=== PATIENT | female | born 1990 | race Caucasian/White ===

== ENCOUNTER 2017-11-21 12:28 | Emergency (ER) | payer OTHER ==
--- NOTE | 2017-11-21 14:42 | PD ---
HPI Chief Complaint pelvic pressure, irregular cramping Travel History International Travel<30 Days: No Contact w/Intl Traveler<30Days: No Known Affected Area: No History of Present Illness HPI 26-year-old , IUP at 37.2 care complicated by illness related asthma. The patient presents complaining of pelvic pressure over the past several days. She reports pressure is worse when she walks and improved at rest. She reports that it feels like the baby is going to fall out. She reports that she has had some dampness on her underwear over the past 3 days and mucousy discharge over the past 2 days. She denies any large gush of fluid. She denies any vaginal bleeding. She denies any painful contractions that are regular but reports some occasional cramping and mild contractions. She reports good movement. She has no other obstetrical complaints today. She denies any headache, visual changes, right upper quadrant or epigastric pain today. Weeks Gestation: 37 Para: 0 : 1 History Past Medical History Narrative Medical Illness induced asthma Obstetric History Obstetric History Past Surgical History Surgical History: No Previous Surgery Family History Narrative Family History Diabetes, CAD, NM, HTN Social History Alcohol Use: No Tobacco Use: No Substance Abuse: No Review of Systems Except as stated in HPI: all other systems reviewed are Neg Physical Exam Narrative GENERAL: Well-nourished, well-developed patient. SKIN: Warm and dry. HEAD: Normocephalic and atraumatic. EYES: No scleral icterus. No injection or drainage. ENT: No nasal drainage noted. Mucous membranes pink. Airway patent. NECK: Supple, trachea midline. No JVD. CARDIOVASCULAR: Regular rate and rhythm without murmurs, gallops, or rubs. RESPIRATORY: Breath sounds equal bilaterally. No accessory muscle use. BREASTS: Deferred ABDOMEN/GI: Abdomen soft, non-tender, bowel sounds present, no rebound, no guarding Gravid GENITOURINARY: External Genitalia: intact and normal in appearance. Normal BUS. No cervical or vaginal masses noted. Examination are negative. No evidence of gross R OM. Grossly normal rugated. Physiologic discharge noted. SVE 1/thick/ high/posterior internal os by RN. FHT's: heart tones are in the 140s with moderate long-term variability, good accelerations, no decelerations noted. This is a reactive NST and category 1 heart rate tracing EXTREMITIES: No cyanosis or edema. BACK: Nontender without obvious deformity. NEUROLOGICAL/musculoskeletal: Awake and alert. Motor and sensory grossly within normal limits. Grossly normal muscle strength in all muscle groups. Normal speech. Grossly normal range of motion, gait. Psychiatric: Grossly normal memory and affect MDM Plan Assessment/plan: 1. IUP at 37.2 2. Pelvic pressure: Discussed that pelvic pressure is common at this gestational age. Discussed that at this gestational age active labor is required to result in delivery. 3. Contractions: Patient is experiencing irregular contractions at term, no evidence of active labor at this time. Patient is counseled on signs and symptoms of active labor. 4. well-being: There is good evidence of well-being with reactive NST and category 1 heart rate tracing. kick counts daily. 5. Leaking of fluid: No evidence of gross rupture of membranes, and be sure negative, PROM/SROM precautions are given. 6. Follow-up with primary OB in 2-3 days as scheduled or sooner if needed Diagnosis Diagnosis: Primary Impression: 37 weeks gestation of Additional Impression: False labor before 37 completed weeks of gestation in third trimester Disposition: 01 DISCHARGE HOME Condition: Good Patient Instructions: General Instructions, at 35 to 38 Weeks (ED) Departure Forms: Tests/Procedures Thao Weaver MD Nov 21, 2017 14:42
== END 2017-11-21 14:00 | disposition home or self-care (01) ==
LOC: HOBED 12:28
DX: O47.1 False labor at or after 37 completed weeks of gestation (principal); O99.513 Diseases of the respiratory system complicating pregnancy, third trimester; J45.909 Unspecified asthma, uncomplicated; Z3A.37 37 weeks gestation of pregnancy
CPT/HCPCS: 59025; 84112

== ENCOUNTER 2017-12-04 18:01 | Inpatient (IN) | payer OTHER ==
[~2017-12-04] VITALS: Ht 165.1 cm; Wt 86.0 kg
[2017-12-04 18:38] VITALS: BP 148/96; PULSE 121
[2017-12-04 18:45] VITALS: RESP 18
[2017-12-04 19:36] LABS: AUTOMATED NEUTROPHIL # 7.2 TH/MM3 (1.8-7.7); BASOPHIL % 0.2 % (0.0-2.0); EOSINOPHIL # 0.1 TH/MM3 (0-0.4); EOSINOPHIL % 0.6 % (0.0-4.0); HEMATOCRIT 36.6 % (35.0-46.0); HEMOGLOBIN 12.7 GM/DL (11.6-15.3); LYMPH % 21.8 % (9.0-44.0); LYMPHOCYTE # 2.3 TH/MM3 (1.0-4.8); MEAN CELL VOLUME 90.3 FL (80.0-100.0); MEAN CORPUSCULAR HEMOGLOBIN 31.3 PG (27.0-34.0); MEAN CORPUSCULAR HGB CONC 34.6 % (32.0-36.0); MEAN PLATELET VOLUME 9.5 FL (7.0-11.0); MONO % 7.5 % (0.0-8.0); MONOCYTE # 0.8 TH/MM3 (0-0.9); NEUT % 69.9 % (16.0-70.0); PLATELET COUNT 185 TH/MM3 (150-450); RED BLOOD COUNT 4.05 MIL/MM3 (4.00-5.30); RED CELL DISTRIBUTION WIDTH 13.5 % (11.6-17.2); WHITE BLOOD COUNT 10.3 TH/MM3 (4.0-11.0)
[2017-12-04 19:40] VITALS: RESP 18; TEMP 98.8
[2017-12-04 19:41] VITALS: BP 134/85; PULSE 107
[2017-12-04 20:02] LABS: BACTERIA, URINE RARE /hpf; BILIRUBIN, URINE NEG (NEG); BLOOD, URINE NEG (NEG); GLUCOSE,URINE NEG (NEG); KETONE, URINE NEG (NEG); NITRITE,URINE NEG (NEG); SQUAMOUS EPITHELIAL CELL URINE 4 /hpf (0-5); URINE LEUKOCYTE ESTERASE MOD (NEG)
[2017-12-04 20:06] LABS: URINE COLOR STRAW (YELLW/STRAW)
[2017-12-04] MEDS ORDERED: DINOPROSTONE 10 MG INSERT-LEAVE FOR 12 HOURS VAGINAL ONE (20:15)
[2017-12-04] MEDS ORDERED: CITRIC ACID-SODIUM CITRATE LIQ 30 ML UDC PO SCH (20:15)
[2017-12-04] MEDS ORDERED: SODIUM CHLORIDE 0.9% FLUSH 10 ML FLUSH IV FLUSH PRN ×2 (20:15)
[2017-12-04] MEDS ORDERED: LIDOCAINE HCL 1% 50 ML VIAL INFIL PRN (20:15)
[2017-12-04] MEDS ORDERED: OXYTOCIN 30 UNITS 500ML PREMIX IV ONE (20:15)
[2017-12-04] MEDS ORDERED: NS 500 ML BOLUS IV PRN (20:15)
[2017-12-04] MEDS ORDERED: MINERAL OIL 10 ML VIAL TOPICAL PRN (20:15)
[2017-12-04] MEDS ORDERED: NS 1000 ML IV PRN (20:15)
[2017-12-04] MEDS ORDERED: LACTATED RINGER'S 1000 ML BOLUS IV PRN (20:15)
[2017-12-04] MEDS ORDERED: PENICILLIN G POT 5,000,000 UNITS/NS 100 ML (Mini-Bag Plus) IV ONE ×2 (20:15)
[2017-12-04] MEDS ORDERED: LIDOCAINE HCL 1% 50 ML VIAL I-DERMAL PRN (20:15)
[2017-12-04] MEDS: LACTATED RINGER'S 1000 ML IV SCH (20:23)
[2017-12-04 20:38] VITALS: RESP 18
[2017-12-04] MEDS ORDERED: ZOLPIDEM TARTRATE 5 MG TAB PO PRN (21:00)
[2017-12-05] VITALS (106 sets, daily range): BP systolic 103–152; BP diastolic 60–94; PULSE 82–123; RESP 16–20; TEMP 97.7–98.7; O2SAT 97–100
[2017-12-05] MEDS ORDERED: PENICILLIN G POT 2,500,000 UNITS/NS 100 ML IV SCH ×2
[2017-12-05] MEDS: LACTATED RINGER'S 1000 ML IV SCH (04:15)
[2017-12-05] MEDS ORDERED: OXYTOCIN 30 UNITS-500ML PREMIX 500 ML IV PRN (08:15)
[2017-12-05] MEDS ORDERED: LACTATED RINGER'S 1000 ML INJ 1,000 ML IV ONE (12:00)
[2017-12-05] MEDS ORDERED: DEXAMETHASONE SOD PHOS 4 MG/ML VIAL IV ONE (12:00)
[2017-12-05] MEDS ORDERED: ePHEDrine/NS 25 MG/5 ML SYRINGE IV ONE (12:00)
[2017-12-05] MEDS ORDERED: ceFAZolin INJ 1,000 MG VIAL IV ONE (12:00)
[2017-12-05] MEDS ORDERED: ONDANSETRON HCL 4 MG/2 ML VIAL IV ONE (12:00)
[2017-12-05] MEDS ORDERED: OXYTOCIN 10 UNIT/ML AMP IV ONE (12:00)
--- NOTE | 2017-12-05 12:00 | HHI.HP ---
HPI Chief Complaint labor induction per Dr. Flynn; H&P dictated but not yet up in system so I am inputting this H&P Date Seen: Dec 05, 2017 Time Seen: 08:00 Travel History International Travel<30 Days: No Contact w/Intl Traveler<30Days: No Known Affected Area: No History of Present Illness HPI 26 yo G1 with EDC 12/10/[address] Flynn for suspected macrosomia. Pt's has otherwise been uncomplicated. On admission denies regular contractions, LOF or VB. Pt gained 42 pounds in . Passed 1hr GTT. GBS positive. Pain 1/10 mild pelvic pressure on admission. Weeks Gestation: 39 Para: 0 : 1 Last Menstrual Period: May 16, 2017 Miscarriage: 0 : 0 History Past Medical History Narrative Medical h/o abnl PAP & colposcopy 2016 Obstetric History Obstetric History G1 = current, male Past Surgical History Narrative Surgical denies (colposcopy/minor office procedure) Family History Family History: Negative Social History Alcohol Use: No Tobacco Use: No Substance Abuse: No Allergies-Medications (Allergen,Severity, Reaction): Coded Allergies: Latex, Natural Rubber (Verified Allergy, Intermediate, 12/04/17) Per cancer doctor post reaction to dissolvable stitches Sulfa (Sulfonamide Antibiotics) (Verified Allergy, Unknown, 12/04/17) Childhood allergy Review of Systems General / Constitutional: Weight Gain, No: Fever, Chills, Other Eyes: No: Diploplia, Blurred Vision, Visual changes, Pain, Photophobia HENT: No: Headaches, Vertigo, Lightheadedness Cardiovascular: No: Irregular Rhythm, Chest Pain or Discomfort, Palpitations, Tachycardia, Syncope, Varicosities, Edema, Cyanosis Respiratory: No: Cough, Short of Breath, Other Gastrointestinal: No: Nausea, Vomiting, Diarrhea Genitourinary: Pelvic Pain (pressure), No: Decreased Urinary Output, Oliguria Musculoskeletal: No: Limited ROM, Weakness, Cramping, Edema, Pain Skin: No Rash, No Itching, No Dryness, No Lumps, No Change in Pigmentation, No Change in Nails, No Alopecia, No Lesions Neurologic: No: Weakness, Dizziness, Syncope, Focal Abnormalities, Coordination Problem, Headache, Slurred Speech, Seizures Psychiatric: No: Depression, Suicidal Ideations, Homicidal Ideation Endocrine: No: Heat Intolerance, Cold Intolerance, Polydipsia, Polyuria, Other Physical Exam Vital Signs Date Time Temp Pulse Resp B/P (MAP) Pulse Ox O2 Delivery O2 Flow Rate FiO2 12/05/17 11:15 113 12/05/17 11:10 109 12/05/17 11:05 112 12/05/17 10:31 97 103/67 (79) 12/05/17 10:16 113 18 124/94 (104) 12/05/17 09:30 102 12/05/17 09:30 98 12/05/17 09:25 97 12/05/17 09:25 98 12/05/17 09:20 89 12/05/17 09:20 98 12/05/17 09:15 92 12/05/17 09:15 99 12/05/17 09:10 98 12/05/17 09:10 98 12/05/17 09:05 97 12/05/17 09:05 112 12/05/17 09:00 98 12/05/17 09:00 99 12/05/17 08:50 99 12/05/17 08:50 97 12/05/17 08:45 99 12/05/17 08:45 95 12/05/17 08:40 98 12/05/17 08:40 91 12/05/17 08:35 99 12/05/17 08:35 91 12/05/17 08:30 89 12/05/17 08:30 99 12/05/17 08:25 88 12/05/17 08:25 99 12/05/17 08:20 100 12/05/17 08:20 90 12/05/17 08:15 99 12/05/17 08:15 87 12/05/17 08:10 100 12/05/17 08:10 93 12/05/17 08:05 97 12/05/17 08:05 100 12/05/17 08:00 100 12/05/17 08:00 109 12/05/17 07:55 103 12/05/17 07:55 100 12/05/17 07:50 98 12/05/17 07:50 100 12/05/17 07:40 83 12/05/17 07:40 98 12/05/17 07:35 99 6/25/18 07:35 88 12/05/17 07:34 84 136/66 (89) 12/05/17 07:33 98.4 17 12/05/17 07:30 88 12/05/17 07:30 98 12/05/17 07:25 89 99 12/05/17 07:20 92 99 12/05/17 07:15 98 12/05/17 07:15 88 12/05/17 07:10 99 12/05/17 07:10 90 12/05/17 07:05 91 12/05/17 07:05 99 12/05/17 07:00 99 12/05/17 07:00 89 12/05/17 06:25 89 12/05/17 06:20 87 12/05/17 06:19 20 12/05/17 04:35 92 12/05/17 04:30 105 12/05/17 04:25 105 12/05/17 04:15 98 12/05/17 03:57 88 120/70 (87) 12/05/17 03:57 97.7 16 12/05/17 01:02 96 110/69 (83) 12/05/17 00:03 97.7 20 12/05/17 00:02 116 152/79 (103) 12/04/17 20:38 18 12/04/17 19:41 107 134/85 (101) 12/04/17 19:40 98.8 18 12/04/17 18:45 18 12/04/17 18:38 121 148/96 (113) Narrative GENERAL: Well-nourished, well-developed patient. SKIN: Warm and dry. HEAD: Normocephalic and atraumatic. EYES: No scleral icterus. No injection or drainage. ENT: No nasal drainage noted. Mucous membranes pink. Airway patent. NECK: Supple, trachea midline. No JVD. CARDIOVASCULAR: Regular rate and rhythm without murmurs, gallops, or rubs. RESPIRATORY: Breath sounds equal bilaterally. No accessory muscle use. BREASTS: deferred ABDOMEN/GI: Abdomen soft, non-tender, bowel sounds present, no rebound, no guarding Gravid to [39] weeks size Fundal Height: [42] GENITOURINARY: External Genitalia: intact and normal in appearance BUS glands: [intact] Cervix: [posterior] Dilatation: [2-3] Effacement: [50] Station: [-3] Presentation: [vtx] Membranes: [intact] Uterine Contractions: [q3-4 min] FHT's: Category: [I] Baseline: [150s] Reactive: [y] Variability: [y] Decels: [n] EXTREMITIES: No cyanosis or edema. BACK: Nontender without obvious deformity. No CVA tenderness. NEUROLOGICAL: Awake and alert. Motor and sensory grossly within normal limits. Five out of 5 muscle strength in all muscle groups. Normal speech. Caprini VTE Risk Assessment Caprini VTE Risk Assessment: No/Low Risk (score <= 1) VTE Pharm Contraindication: Epidural catheter Caprini Risk Assessment Model Point Value = 1 Point Value = 2 Point Value = 3 Point Value = 5 Age 41-60 Minor surgery BMI > 25 kg/m2 Swollen legs Varicose veins or History of unexplained or recurrent spontaneous Oral contraceptives or hormone replacement Sepsis (< 1 month) Serious lung disease, including pneumonia (< 1 month) Abnormal pulmonary function Acute myocardial infarction Congestive heart failure (< 1 month) History of inflammatory bowel disease Medical patient at bed rest Age 61-74 Arthroscopic surgery Major open surgery (> 45 min) Laparoscopic surgery (> 45 min) Malignancy Confined to bed (> 72 hours) Immobilizing plaster cast Central venous access Age >= 75 History of VTE Family history of VTE Factor V Leiden Prothrombin [id number] Lupus anticoagulant Anticardiolipin antibodies Elevated serum homocysteine Heparin-induced thrombocytopenia Other congenital or acquired thrombophilia Stroke (< 1 month) Elective arthroplasty Hip, pelvis, or leg fracture Acute spinal cord injury (< 1 month) Prophylaxis Regimen Total Risk Factor Score Risk Level Prophylaxis Regimen 0-1 Low Early ambulation 2 Moderate Order ONE of the following: *Sequential Compression Device (SCD) *Heparin 5000 units SQ BID 3-4 Higher Order ONE of the following medications: *Heparin 5000 units SQ TID *Enoxaparin/Lovenox 40 mg SQ daily (WT < 150 kg, CrCl > 30 mL/min) *Enoxaparin/Lovenox 30 mg SQ daily (WT < 150 kg, CrCl > 10-29 mL/min) *Enoxaparin/Lovenox 30 mg SQ BID (WT < 150 kg, CrCl > 30 mL/min) AND/OR *Sequential Compression Device (SCD) 5 or more Highest Order ONE of the following medications: *Heparin 5000 units SQ TID (Preferred with Epidurals) *Enoxaparin/Lovenox 40 mg SQ daily (WT < 150 kg, CrCl > 30 mL/min) *Enoxaparin/Lovenox 30 mg SQ daily (WT < 150 kg, CrCl > 10-29 mL/min) *Enoxaparin/Lovenox 30 mg SQ BID (WT < 150 kg, CrCl > 30 mL/min) AND *Sequential Compression Device (SCD) Data Data Vital Signs Reviewed: Yes Orders Orders Admit To Inpatient (12/04/17 ) Code Status (12/04/17 18:18) Vital Signs (Adult) .Per protocol (12/04/17 18:18) Heart (12/04/17 18:18) Amnioinfusion (12/04/17 18:18) Urinary Catheter Management .ONCE (12/04/17 18:18) Complete Blood Count With Diff (12/04/17 18:18) Hold Clot (12/04/17 18:18) Abo/Rh Blood Type (12/04/17 18:18) Urinalysis - C+S If Indicated (12/04/17 18:18) Ob/Psych Drug Screen, Urine (12/04/17 18:18) Resp Oxygen Non Rebreathe Mask (12/04/17 ) ^ Epidural / Intrathecal Infus (12/04/17 18:18) Specimen To Be Collected PRN (12/04/17 18:18) Specimen To Be Collected PRN (12/04/17 18:18) Admit To Inpatient (12/04/17 ) ^ Labor Induction (12/04/17 18:20) ^ Vaginal Insert (12/04/17 18:20) ^ Vaginal Lavage (12/04/17 18:20) Heart (12/04/17 18:20) Code Status (12/04/17 19:59) Lactated Ringer's 1000 Ml Inj (Lr 1000 M (12/04/17 20:15) Lactated Ringer's 1000 Ml Inj (Lr 1000 M (12/04/17 20:15) Sodium Chlorid 0.9% 500 Ml Inj (Ns 500 M (12/04/17 20:15) Sodium Chlor 0.9% 1000 Ml Inj (Ns 1000 M (12/04/17 20:15) Lidocaine 1% Inj (50 Ml) (Xylocaine 1% I (12/04/17 20:15) Citric Acid-Sodium Citrate Liq (Bicitra (12/04/17 20:15) Fentanyl Inj (Fentanyl Inj) (12/04/17 20:15) Fentanyl Inj (Fentanyl Inj) (12/04/17 20:15) Penicillin G Potassium Inj (Pfizerpen-G (12/04/17 20:15) Penicillin G Potassium Inj (Pfizerpen-G (12/05/17 00:00) Oxytocin 30 Units-500ml Premix (Pitocin (12/04/17 20:15) Lidocaine 1% Inj (50 Ml) (Xylocaine 1% I (12/04/17 20:15) Light Mineral Oil (Muri-Lube Oil) (12/04/17 20:15) Dinoprostone Vag Insert (Cervidil Vag In (12/04/17 20:15) Sodium Chloride 0.9% Flush (Ns Flush) (12/04/17 20:15) Sodium Chloride 0.9% Flush (Ns Flush) (12/04/17 20:15) Zolpidem (Ambien) (12/04/17 21:00) Diet Regular Basic (12/05/17 Breakfast) Diet Liquid (12/05/17 Lunch) ^ Non Stress Test (12/05/17 08:07) Response To Medication .Post New Med Administration, Reaction (12/05/17 08:07) ^ Discontinue Medication (12/05/17 08:07) Oxytocin 30 Units-500ml Premix (Pitocin (12/05/17 08:15) Group B Strep: Positive Labs Laboratory Tests Test 12/04/17 18:45 White Blood Count 10.3 Red Blood Count 4.05 Hemoglobin 12.7 Hematocrit 36.6 Mean Corpuscular Volume 90.3 Mean Corpuscular Hemoglobin 31.3 Mean Corpuscular Hemoglobin Concent 34.6 Red Cell Distribution Width 13.5 Platelet Count 185 Mean Platelet Volume 9.5 Neutrophils (%) (Auto) 69.9 Lymphocytes (%) (Auto) 21.8 Monocytes (%) (Auto) 7.5 Eosinophils (%) (Auto) 0.6 Basophils (%) (Auto) 0.2 Neutrophils # (Auto) 7.2 Lymphocytes # (Auto) 2.3 Monocytes # (Auto) 0.8 Eosinophils # (Auto) 0.1 Basophils # (Auto) 0.0 CBC Comment DIFF FINAL Differential Comment Urine Color STRAW Urine Turbidity CLEAR Urine pH 6.0 Urine Specific [place] 1.002 Urine Protein NEG Urine Glucose (UA) NEG Urine Ketones NEG Urine Occult Blood NEG Urine Nitrite NEG Urine Bilirubin NEG Urine Urobilinogen LESS THAN 2 Urine Leukocyte Esterase MOD Urine RBC 1 Urine WBC 1 Urine Squamous Epithelial Cells 4 Urine Bacteria RARE Microscopic Urinalysis Comment CULT NOT INDICATED Urine Opiates Screen NEG Urine Barbiturates Screen NEG Urine Amphetamines Screen NEG Urine Benzodiazepines Screen NEG Urine Cocaine Screen NEG Urine Cannabinoids Screen NEG Assessment/Plan Problem List: (1) Large for gestational age fetus affecting management of mother ICD Codes: O36.60X0 - Maternal care for excessive growth, unspecified trimester, not applicable or unspecified Status: Acute Qualifiers: Qualified Codes: O36.63X0 - Maternal care for excessive growth, third trimester, not applicable or unspecified Assessment and Plan 26 yo G1 with rae IUP at 39w2d admit for term induction, suspected large for gestational age 1) IOL: s/p cervidil overnight, remains high station, unable to safely AROM, pitocin augmentation for now, will re-evaluate; d/w pt if no descent may need , pt aware & agreeable; Cat I tracing currently 2) GBS +: ppx ordered 3) status: male vertex EFW >9# Cat I tracing Discharge Planning 2-3d PP Sully Pierre MD Dec 05, 2017 12:00
[2017-12-05] MEDS ORDERED: MORPHINE SULFATE PF 5 MG/10 ML VIAL ONE (17:55)
[2017-12-05] MEDS ORDERED: ceFAZolin 2 GM PREMIX 50 ML IV SCH (18:45)
[2017-12-05] MEDS ORDERED: SIMETHICONE 80 MG CHEWABLE TAB PO PRN (19:00)
[2017-12-05] MEDS ORDERED: IBUPROFEN 600 MG TAB PO PRN (19:00)
[2017-12-05] MEDS ORDERED: OXYTOCIN 30 UNITS-500ML PREMIX 500 ML IV ONE (19:00)
[2017-12-05] MEDS ORDERED: ACETAMINOPHEN 325 MG TAB PO PRN (19:00)
[2017-12-05] MEDS ORDERED: KETOROLAC TROMETHAMINE 60 MG/2 ML (IM) VIAL IM PRN (19:00)
[2017-12-05] MEDS ORDERED: ACETAMINOPHEN 1000 MG/100 ML 100 ML IV ONE ×2 (19:00→19:27)
[2017-12-05] MEDS ORDERED: SODIUM CHLORIDE 0.9% FLUSH 10 ML FLUSH IV FLUSH PRN (19:00)
--- NOTE | 2017-12-05 19:04 | PD.OB.DELI ---
Procedure Note Section Procedure Pre Op Diagnosis: (1) Arrested labor (2) Large for gestational age fetus affecting management of mother Post Op Diagnosis: (1) S/P primary low transverse (2) Arrested labor (3) Large for gestational age fetus affecting management of mother Performed by Sully Pierre Procedure: Primary Low Transverse Sec Indication for delivery: Other (arrest of descent, suspected cephalopelvic disproportion) Previous condition: None Informed consent obtained: For anesthesia, For procedure Confirmed correct: Patient, Procedure, Site, Time-out taken Anesthesia: Spinal Medication prior to procedure: As documented in eMAR Monitoring during procedure: Blood pressure monitoring, log deckman, Pulse oximetry Urinary catheter: Inserted using sterile technique, To dependent drainage, ml urine output (100) Sterile preparation: Duraprep, In usual fashion, With drapes to expose affected area Position: Supine with wedge to right side Operative Features Skin Incision: Pfannenstiel Uterine Incision: Low transverse w/knife / scissors Membranes Ruptured: Artificially, Amount of liquid (copious), Appearance of fluid (clear) Presentation: Vertex Delivery date: Dec 05, 2017 Delivery time: 18:28 Delivery of infant: Umbilical cord (loose nuchal reduced ) : Male, Single One Minute : 8 Five Minute : 9 Weight: 8#15oz Status of infant: Viable, Cord blood, Nursery present Placenta delivered: Intact Medications: Antibiotics (ancef 2g IV preop) Estimated blood loss: 500 mL Procedure tolerated: Well Maternal Condition: Stable Condition: Stable Procedure in detail see dictated op note for full details Sully Pierre MD Dec 05, 2017 19:04
[2017-12-05] MEDS ORDERED: ONDANSETRON ODT 4 MG TAB PO PRN (19:15)
[2017-12-05] MEDS ORDERED: SODIUM CHLORIDE 0.9% FLUSH 10 ML FLUSH IV FLUSH SCH (21:00)
--- NOTE | 2017-12-05 22:16 | MP ---
cc: Sully Pierre MD DATE OF OPERATION: 12/05/2017 PREOPERATIVE DIAGNOSES: 1. Santiago intrauterine at 39 weeks and 2 days. 2. Labor induction for suspected macrosomia. 3. Arrest of descent in labor. POSTOPERATIVE DIAGNOSES: 1. Santiago intrauterine at 39 weeks and 2 days. 2. Labor induction for suspected macrosomia. 3. Arrest of descent in labor. 4. Postoperative day number 0. INDICATIONS FOR PROCEDURE: Dianne Allred is a 26-year-old 1, now para 1-0-0-1, who was seen and evaluated in the office by Dr. Flynn with measuring size greater than dates at approximately 35/36 weeks. Ultrasound was performed, which showed the already weighed 7 pounds 10 ounces, which was greater than 90th percentile. Due to this, it was discussed with the patient induction of labor at 39 weeks for suspected macrosomia. The patient agreed. The patient was induced using Cervidil, progressed from closed to 3 cm, but remained -3 station despite regular contractions throughout the day. Due to inability to break water, arrest of descent and no change in station, it was discussed with the patient suspected cephalopelvic disproportion and the patient was taken for . PROCEDURE PERFORMED: Primary low transverse delivery. SURGEON: uSlly Pierre MD TYPE OF ANESTHESIA: Spinal. ESTIMATED BLOOD LOSS: 500 mL URINE OUTPUT: 100 mL clear urine at the end of the case. INTRAVENOUS FLUID REPLACEMENT: 1000 mL PROPHYLAXIS: Ancef 2 grams IV was given preoperatively. SCDs were on and functioning throughout the entire case. COMPLICATIONS: None. COUNTS: All sponge, lap, instrument and needle counts correct x 2 at the conclusion of the procedure. FINDINGS: Intraoperative findings include a vigorous viable male weighing 8 pounds 15 ounces, Apgars of 8 and 9. Clear copious amniotic fluid. Normal uterus, bilateral adnexa. SPECIMENS: None. PROCEDURE IN DETAIL: After reviewing the informed consent, the patient was taken to the operating suite, where a timeout was performed to identify the patient, the planned procedure and any known allergies to drugs or drug products. The patient was placed sitting up on the exam table and spinal anesthesia was administered without difficulty and found to be adequate. The patient was then laid in dorsal supine position with a bump under her right side and Yoder catheter was placed using sterile technique. The abdomen was then prepped and draped in normal sterile fashion. Pfannenstiel type skin incision was made with a scalpel, carried down to the underlying layer of fascia with the Bovie. The fascia was incised in the midline and the incision was extended laterally with sharp dissection using Damon scissors. Superior aspect of the fascial incision was elevated with Alexandra clamps. Rectus muscles dissected off sharply with Damon scissors. Kochers were then moved inferiorly to the fascial edge. Again, the fascia was elevated rectus muscles were dissected off sharply. The rectus muscles were then in the midline. The peritoneum was identified, elevated with hemostat and entered sharply with Metzenbaum scissors. The incision was extended superiorly and inferiorly with good visualization of intra-abdominal contents. A bladder blade was placed. Bladder flap was not made. Low transverse uterine incision was made with a scalpel, extended bluntly and the amniotic sac was entered and copious clear fluid was found. 's head was grasped and flexed out through the incision. A loose nuchal cord was encountered. This was reduced. With gentle maneuvering the rest of the 's body readily delivered. Infant was immediately crying and vigorous upon delivery. Delayed cord clamping of 45 seconds was performed. 's nose and mouth were suctioned with bulb suction. was handed off to the awaiting nursery staff. The cord blood sample was then taken. Placenta was delivered spontaneously with gentle fundal massage and cord traction. The uterus was then exteriorized, cleared of all clots and debris with sterile moist lap sponges. Hysterotomy was repaired in a double-layer, first in a running locked layer, then in an imbricating layer with #1 chromic. Excellent hemostasis was noted. Posterior cul-de-sac was irrigated copiously. Uterus was returned to the abdomen. Additional irrigation with suction was performed and hemostasis was ensured. The peritoneum was then reapproximated with 2-0 chromic in a running fashion. The fascia was reapproximated with 0 Vicryl in a running fashion. Subcutaneous tissue was irrigated copiously and skin was closed with ayla. A standard dressing was placed. Procedure concluded at this point. The patient tolerated the procedure well, without complication. DISPOSITION: The patient's estimated length of stay is two to three postoperative days. is nursery status. MD LARS Amaro , 06:58 PM , 10:15 PM [facility]
[2017-12-05] MEDS ORDERED: LACTATED RINGER'S 1000 ML INJ 1,000 ML IV SCH (23:59)
[2017-12-06] MEDS ORDERED: OXYTOCIN 30 UNITS-500ML PREMIX 500 ML IV PRN
[2017-12-06 01:15] VITALS: BP 124/69; PULSE 102; RESP 18; TEMP 98.3; O2SAT 98
[2017-12-06 04:45] VITALS: BP 117/68; PULSE 104; RESP 18; TEMP 98.3; O2SAT 97
[2017-12-06] MEDS: IBUPROFEN 600 MG TAB PO PRN ×3 (05:29→18:24)
[2017-12-06 05:55] LABS: AUTOMATED NEUTROPHIL # 14.1 TH/MM3 (1.8-7.7); BASOPHIL % 0.1 % (0.0-2.0); HEMATOCRIT 29.8 % (35.0-46.0); HEMOGLOBIN 9.9 GM/DL (11.6-15.3); LYMPH % 8.3 % (9.0-44.0); LYMPHOCYTE # 1.4 TH/MM3 (1.0-4.8); MEAN CELL VOLUME 92.2 FL (80.0-100.0); MEAN CORPUSCULAR HEMOGLOBIN 30.8 PG (27.0-34.0); MEAN CORPUSCULAR HGB CONC 33.4 % (32.0-36.0); MEAN PLATELET VOLUME 9.4 FL (7.0-11.0); MONO % 8.4 % (0.0-8.0); MONOCYTE # 1.4 TH/MM3 (0-0.9); NEUT % 83.2 % (16.0-70.0); PLATELET COUNT 162 TH/MM3 (150-450); RED BLOOD COUNT 3.23 MIL/MM3 (4.00-5.30); RED CELL DISTRIBUTION WIDTH 13.5 % (11.6-17.2); WHITE BLOOD COUNT 16.9 TH/MM3 (4.0-11.0)
[2017-12-06 08:00] VITALS: BP 123/67; PULSE 118; RESP 20; TEMP 98.6; O2SAT 96
[2017-12-06] MEDS: DOCUSATE SODIUM 50 MG/SENNA 8.6 MG TAB PO PRN ×2 (08:30→22:33)
[2017-12-06] MEDS: oxyCODONE/ACETAMINOPHEN 5 MG/325 MG TAB PO PRN ×4 (08:30→22:34)
--- NOTE | 2017-12-06 08:42 | HHI.OB ---
Subjective Post Operative Day: 1 Remarks s/p primary LTCD for arrest of labor Objective Vitals/I&O Vital Signs Date Time Temp Pulse Resp B/P (MAP) Pulse Ox O2 Delivery O2 Flow Rate FiO2 12/06/17 08:00 98.6 118 20 123/67 (85) 96 12/06/17 04:45 98.3 104 18 117/68 (84) 97 12/06/17 01:15 98.3 102 18 124/69 (87) 98 12/05/17 20:53 98.4 110 18 135/81 (99) 98 12/05/17 20:15 92 18 125/74 (91) 100 12/05/17 19:45 82 18 131/60 (83) 100 12/05/17 19:20 99 18 142/63 (89) 12/05/17 19:20 100 12/05/17 19:07 146/83 (104) 12/05/17 19:01 88 18 100 12/05/17 19:00 98.1 12/05/17 17:30 109 12/05/17 17:25 105 12/05/17 17:20 114 12/05/17 17:15 104 12/05/17 17:10 109 12/05/17 17:05 112 12/05/17 16:50 105 12/05/17 16:45 111 12/05/17 16:44 108 142/86 (104) 12/05/17 16:42 98.7 12/05/17 16:42 98.2 17 12/05/17 16:40 105 12/05/17 16:35 123 12/05/17 16:30 110 12/05/17 16:25 108 12/05/17 16:20 112 12/05/17 16:15 98 12/05/17 16:10 96 12/05/17 16:05 100 12/05/17 16:00 96 12/05/17 15:55 98 12/05/17 15:50 103 12/05/17 15:45 108 12/05/17 15:35 87 12/05/17 15:35 92 108/69 (82) 12/05/17 15:30 86 12/05/17 15:25 87 12/05/17 15:20 89 12/05/17 15:15 90 12/05/17 15:10 93 6/25/18 15:05 93 12/05/17 15:00 89 12/05/17 14:55 87 12/05/17 14:50 88 12/05/17 14:45 92 12/05/17 14:40 92 12/05/17 14:35 91 12/05/17 14:30 99 12/05/17 14:25 100 12/05/17 14:20 107 12/05/17 14:15 102 12/05/17 14:10 104 12/05/17 14:05 107 12/05/17 14:00 107 12/05/17 13:55 99 12/05/17 13:50 102 12/05/17 13:45 101 12/05/17 13:40 103 12/05/17 13:35 109 12/05/17 13:30 109 12/05/17 13:03 92 108/63 (78) 12/05/17 12:38 98 104/69 (81) 12/05/17 12:12 109 122/74 (90) 12/05/17 12:10 97.9 17 12/05/17 11:15 113 12/05/17 11:10 109 12/05/17 11:05 112 12/05/17 10:31 97 103/67 (79) 12/05/17 10:16 113 18 124/94 (104) 12/05/17 09:30 102 12/05/17 09:30 98 12/05/17 09:25 97 12/05/17 09:25 98 12/05/17 09:20 89 12/05/17 09:20 98 12/05/17 09:15 92 12/05/17 09:15 99 12/05/17 09:10 98 12/05/17 09:10 98 12/05/17 09:05 97 12/05/17 09:05 112 12/05/17 09:00 98 12/05/17 09:00 99 12/05/17 08:50 99 12/05/17 08:50 97 12/05/17 08:45 99 12/05/17 08:45 95 Result Diagram: 12/06/17 0503 Objective Remarks GENERAL: Well-nourished, well-developed patient. CARDIOVASCULAR: Regular rate and rhythm without murmurs, gallops, or rubs. RESPIRATORY: Breath sounds equal bilaterally. No accessory muscle use. ABDOMEN/GI: Abdomen soft, non-tender, bowel sounds present. Incision: bandage Clean, dry and intact. ayla in place Fundus: Firm, non-tender at umbilicus. GENITOURINARY: Light to moderate bleeding. EXTREMITIES: No cyanosis or edema, non-tender, without signs of DVT. Medications and IVs Current Medications Medications (Trade) Dose Ordered Sig/Kyle Route Start Time Stop Time Status Last Admin Lactated Ringer's 1,000 ml @ 3,000 mls/hr BOLUS PRN IV 12/04/17 20:15 (Ambien) 5 mg HS PRN PO 12/04/17 21:00 Lactated Ringer's 1,000 ml @ 100 mls/hr Q10H IV 12/05/17 23:59 12/06/17 19:58 Oxytocin 500 ml @ 100 mls/hr UNSCH X1 PRN IV 12/06/17 00:00 12/06/17 23:59 (NS Flush) 2 ml BID IV FLUSH 12/05/17 21:00 (NS Flush) 2 ml UNSCH PRN IV FLUSH 12/05/17 19:00 (Mylicon Chew) 80 mg QID PRN PO 12/05/17 19:00 (Tylenol) 650 mg Q6H PRN PO 12/05/17 19:00 (Percocet 5-325 Mg) 1 tab Q4H PRN PO 12/05/17 19:00 (Percocet 5-325 Mg) 2 tab Q4H PRN PO 12/05/17 19:00 12/06/17 08:30 (Honey-Colace) 2 tab Q12H PRN PO 12/05/17 19:00 12/06/17 08:30 (M-M-R Ii Inj) 0.5 ml ONCE ONCE SQ 12/06/17 16:00 12/06/17 16:01 (Boostrix Inj) 0.5 ml ONCE ONCE IM 12/06/17 16:00 12/06/17 16:01 (Zofran Odt) 4 mg Q6H PRN PO 12/05/17 19:15 12/05/17 23:10 (Motrin) 600 mg Q6H PRN PO 12/06/17 05:30 12/06/17 05:29 Assessment/Plan Problem List: (1) Large for gestational age fetus affecting management of mother ICD Codes: O36.60X0 - Maternal care for excessive growth, unspecified trimester, not applicable or unspecified Status: Acute Qualifiers: Qualified Codes: O36.63X0 - Maternal care for excessive growth, third trimester, not applicable or unspecified Assessment and Plan POD#1 continue supportive care, suarez to be d/c'd this AM, ambulate, shower later today & remove bandage; anticipate d/c to home POD#2-3; for circ prior to d/c Discharge Planning 2-3d Sully Brown MD Dec 06, 2017 08:42
[2017-12-06] MEDS ORDERED: IBUPROFEN 600 MG TAB PO PRN (11:00)
[2017-12-06 11:41] VITALS: BP 121/69; PULSE 102; RESP 20; TEMP 97.8; O2SAT 97
[2017-12-06 14:56] VITALS: BP 113/69; PULSE 106; RESP 20; TEMP 97.9; O2SAT 96
[2017-12-06] MEDS ORDERED: MEASLES, MUMPS, RUBELLA VACCINE 0.5 ML VIAL SQ ONE (16:00)
[2017-12-06] MEDS ORDERED: DIPHTH IM ONE (16:00)
[2017-12-06] MEDS ORDERED: [UNRECOGNIZED DRUG - OTHER] IM ONE (16:00)
[2017-12-06] MEDS ORDERED: TETANUS IM ONE (16:00)
[2017-12-06 22:35] VITALS: BP 113/80; PULSE 108; RESP 18; TEMP 98
[2017-12-07] MEDS: IBUPROFEN 600 MG TAB PO PRN ×2 (04:20→10:22)
[2017-12-07] MEDS: oxyCODONE/ACETAMINOPHEN 5 MG/325 MG TAB PO PRN ×3 (04:21→13:45)
--- NOTE | 2017-12-07 11:35 | HHI.OB ---
Subjective Post Operative Day: 2 Remarks POD#2, doing well, desires discharge to home, doing well Objective Vitals/I&O Vital Signs Date Time Temp Pulse Resp B/P (MAP) Pulse Ox O2 Delivery O2 Flow Rate FiO2 12/06/17 22:35 98.0 108 18 113/80 (91) 12/06/17 14:56 97.9 96 12/06/17 14:56 106 20 113/69 (84) 12/06/17 11:41 97.8 102 20 121/69 (86) 97 Result Diagram: 12/06/17 0503 Objective Remarks GENERAL: Well-nourished, well-developed patient. CARDIOVASCULAR: Regular rate and rhythm without murmurs, gallops, or rubs. RESPIRATORY: Breath sounds equal bilaterally. No accessory muscle use. ABDOMEN/GI: Abdomen soft, non-tender, bowel sounds present. Incision: bandage Clean, dry and intact. ayla in place Fundus: Firm, non-tender at umbilicus. GENITOURINARY: Light to moderate bleeding. EXTREMITIES: No cyanosis or edema, non-tender, without signs of DVT. Medications and IVs Current Medications Medications (Trade) Dose Ordered Sig/Kyle Route Start Time Stop Time Status Last Admin Lactated Ringer's 1,000 ml @ 3,000 mls/hr BOLUS PRN IV 12/04/17 20:15 (Ambien) 5 mg HS PRN PO 12/04/17 21:00 (NS Flush) 2 ml BID IV FLUSH 12/05/17 21:00 (NS Flush) 2 ml UNSCH PRN IV FLUSH 12/05/17 19:00 (Mylicon Chew) 80 mg QID PRN PO 12/05/17 19:00 (Tylenol) 650 mg Q6H PRN PO 12/05/17 19:00 (Percocet 5-325 Mg) 1 tab Q4H PRN PO 12/05/17 19:00 12/07/17 04:21 (Percocet 5-325 Mg) 2 tab Q4H PRN PO 12/05/17 19:00 12/07/17 09:05 (Honey-Colace) 2 tab Q12H PRN PO 12/05/17 19:00 12/06/17 22:33 (Zofran Odt) 4 mg Q6H PRN PO 12/05/17 19:15 12/05/17 23:10 (Motrin) 600 mg Q6H PRN PO 12/06/17 05:30 12/07/17 10:22 Assessment/Plan Problem List: (1) Large for gestational age fetus affecting management of mother ICD Codes: O36.60X0 - Maternal care for excessive growth, unspecified trimester, not applicable or unspecified Status: Acute Qualifiers: Qualified Codes: O36.63X0 - Maternal care for excessive growth, third trimester, not applicable or unspecified Assessment and Plan POD#2; Stable,doing well continue supportive care,; anticipate d/c to home POD#2; infant for circ prior to d/c. will return to office in 1-2 days to remove ayla Discharge Planning today James Krishnamurthy MD Dec 07, 2017 11:35
--- NOTE | 2017-12-07 11:36 | HHI.DS ---
Admission Date Dec 04, 2017 at 18:01 Admitting Diagnosis Diagnosis: Delivery Date: Dec 05, 2017 : Primary : Male, Single Brief History 26 yo G1 with EDC 12/10/[address] Flynn for suspected macrosomia. Pt's has otherwise been uncomplicated. On admission denies regular contractions, LOF or VB. Pt gained 42 pounds in . Passed 1hr GTT. GBS positive. Pain 1/10 mild pelvic pressure on admission. Pt Condition on Discharge: Good Discharge Disposition: Discharge Home Discharge Instructions Diet Instructions: As Tolerated, No Restrictions Activities You Can Perform: Shower Only-No Bath Activities to Avoid: Prolonged Standing, Strenuous Activity, Driving, Sexual Activity James Krishnamurthy MD Dec 07, 2017 11:36
[2017-12-07] MEDS ORDERED: OXYC1TAB63 PO (11:38)
== END 2017-12-07 17:04 | disposition home or self-care (01) | DRG 766 ==
LOC: H2EA 18:01 → H1EA 12-05 20:30
PROVIDERS: ADMIT Obstetrics & Gynecology; ATTEND Obstetrics & Gynecology
PROC: 10D00Z1 Extraction of Products of Conception, Low, Open Approach (ICD-10-PCS; principal; 2017-12-05)
DX: O36.63X0 Maternal care for excessive fetal growth, third trimester, not applicable or unspecified (principal); O99.824 Streptococcus B carrier state complicating childbirth; O69.81X0 Labor and delivery complicated by cord around neck, without compression, not applicable or unspecified; O62.1 Secondary uterine inertia; Z37.0 Single live birth; Z91.040 Latex allergy status; Z3A.39 39 weeks gestation of pregnancy
CPT/HCPCS: 59025; 80307; 81001; 85025; 86900; 86901; 90715; J0131; J0690; J1100; J2274; J2405; J2540; J2590; J7120